=== PATIENT | female | born 1970 | race Caucasian/White ===

== ENCOUNTER 2023-10-02 09:15 | Day surgery (SDC) | payer BC ==
[2023-09-25 12:50] LABS: BILIRUBIN,URINE NEGATIVE (Neg); CLARITY,URINE SLIGHTLY CLOUDY (Clear); COLOR,URINE YELLOW (Yellow); GLUCOSE, URINE NEGATIVE (Neg); KETONES,URINE NEGATIVE (Neg); LEUKOCYTE ESTERASE ,URINE NEGATIVE (Neg); NITRITES, URINE NEGATIVE (Neg); OCCULT BLOOD,URINE NEGATIVE (Neg); PROTEIN,URINE NEGATIVE (Neg); UROBILINOGEN,URINE 0.2 E.U/dL (0.2-1.0)
[2023-09-25 12:51] LABS: UA COLLECTION TYPE CLN CATCH MIDSTREAM
[2023-09-25 12:55] LABS: BASOPHILS % (AUTO) 0.2 % (0-1); EOSINOPHILS # (AUTO) 0.1 X10'3 (0-0.9); EOSINOPHILS % (AUTO) 1.4 % (0-6); LYMPHOCYTES # (AUTO) 3.1 X10'3 (1.1-4.8); LYMPHOCYTES % (AUTO) 29.7 % (21-51); MEAN CORPUSCULAR HEMOGLOBIN 29.7 PG (27.0-31.0); MEAN CORPUSCULAR HGB CONC 33.3 g/dL (33.0-36.5); MEAN CORPUSCULAR VOLUME 89.1 FL (78-98); MEAN PLATELET VOLUME 7.5 FL (7.4-10.4); MONOCYTES # (AUTO) 0.5 X10'3 (0-0.9); MONOCYTES % (AUTO) 4.8 % (2-12); NEUTROPHILS # (AUTO) 6.7 X10'3 (1.8-7.7); NEUTROPHILS % (AUTO) 63.9 % (42-75); PRE OP HEMATOCRIT 44.2 % (35.0-45.0); PRE OP HEMOGLOBIN 14.7 g/dL (12.0-16.0); PRE OP PLATELET COUNT 398 X10'3 (140-440); PRE OP WHITE BLOOD COUNT 10.4 10'3 (4.8-10.8); RED BLOOD COUNT 4.96 X10'6 (4.20-5.60); RED CELL DISTRIBUTION WIDTH 14.7 % (11.5-14.5)
[2023-09-25 12:59] LABS: BACTERIA,URINE NONE SEEN /HPF (Neg); RBC,URINE NONE SEEN /HPF (0-2); SQUAMOUS EPITHELIAL CELL,UR MODERATE /LPF (FEW); WBC,URINE 0-4 /HPF (0-4)
[2023-09-25 13:02] LABS: STARCH,URINE FEW /HPF (NEGATIVE)
[2023-09-25 13:19] LABS: ALBUMIN 3.5 G/DL (3.4-5.0); ALBUMIN/GLOBULIN RATIO 0.9 (1.1-1.5); ALKALINE PHOSPHATASE 78 IU/L (46-116); BLOOD UREA NITROGEN 9 MG/DL (7-18); CHLORIDE 107 MMOL/L (99-107); CREATININE 0.69 MG/DL (0.40-0.90); PRE OP ALT 30 U/L (30-65); PRE OP ANION GAP 6 (8-16); PRE OP AST 14 U/L (10-37); PRE OP BILIRUB, TOTAL 0.5 MG/DL (0.0-1.0); PRE OP GLUCOSE 94 MG/DL (70-104); PRE OP POTASSIUM 3.6 MMOL/L (3.4-5.1); PRE OP SODIUM 142 MMOL/L (135-145); TOTAL CARBON DIOXIDE 29.3 MMOL/L (24-32); TOTAL PROTEIN 7.3 G/DL (6.4-8.2); eGFR 89 ML/MIN
[~2023-10-02] VITALS: Ht 170.2 cm; Wt 111.6 kg
[2023-10-02] VITALS (22 sets, daily range): BP systolic 106–186; BP diastolic 60–79; PULSE 74–86; RESP 10–24; TEMP 97.2–98.8; O2SAT 91–97
[2023-10-02] MEDS: clindamycin-Cleocin 900mg/D5W 50 ML IV ONE (05:30)
[2023-10-02] MEDS: famotidine 20mg tablet PO ONE (05:30)
[~2023-10-02 09:15] MED LIST: ACET-812 PO; ALBU18HF2 INH; FEXO1TAB5 PO; FLUT16SP2 BOTHNARES; GING550C4 PO; MULT-1085 PO
[2023-10-02] MEDS: gentamicin inj 400 MG in normal saline 100ml IV soln 100 ML IV ONE (09:55)
[2023-10-02] MEDS ORDERED: MIDAZolam 1 MG/ML 5ML VIAL ONE (12:02)
[2023-10-02] MEDS ORDERED: sevoflurane 250ml liquid IH ONE ×2 (12:39)
[2023-10-02] MEDS ORDERED: propofol inj 20 ML IV ONE (12:57)
[2023-10-02] MEDS ORDERED: fentaNYL /PF 50mcg/ml 5ml ampule ONE (12:57)
[2023-10-02] MEDS ORDERED: rocuronium 10mg/ml inj IV ONE ×3 (12:57→12:59)
[2023-10-02] MEDS ORDERED: LIDOcaine 2% (20mg/ml) 5ml vial ONE (12:57)
[2023-10-02] MEDS ORDERED: ondansetron/PF 4mg/2ml inj ONE (12:58)
[2023-10-02] MEDS ORDERED: acetaminophen 1,000mg/100ml IV 100 ML IV ONE (13:01)
[2023-10-02] MEDS ORDERED: morphine 4 MG/ML inj SYRINge IV PRN (13:25)
[2023-10-02] MEDS ORDERED: labetalol 20mg/4ml (5mg/ml) syringe IV PRN (13:25)
[2023-10-02] MEDS ORDERED: hydrALAZINE 20mg/ml inj. IV PRN (13:25)
[2023-10-02] MEDS ORDERED: fentaNYL/PF 50MCG/1 ML 2ML syringe IV PRN ×2 (13:25)
[2023-10-02] MEDS ORDERED: ondansetron/PF 4mg/2ml inj IV PRN ×2 (13:25→16:40)
[2023-10-02] MEDS: BUPIVAcaine 2.5mg/ml inj 50ml vial (contains preservative) ONE (13:39)
[2023-10-02] MEDS: clindamycin phosphate 40gm vag cream ONE (13:39)
[2023-10-02] MEDS: vasoPRESSIN 20 units/ml inj. ONE (13:40)
[2023-10-02] MEDS ORDERED: normal saline 500ml IV soln 500 ML IV PRN (16:40)
[2023-10-02] MEDS ORDERED: diphenhydrAMINE 50 mg/ml inj IV PRN (16:40)
[2023-10-02] MEDS ORDERED: metoclopramide 5 mg/ml inj IV PRN (16:40)
[2023-10-02] MEDS ORDERED: magnesium hydroxide 30ml (MOM) UD suspension PO PRN (16:40)
[2023-10-02] MEDS ORDERED: HYDROcodone/acetaminophen 10/325mg tab PO PRN (16:40)
[2023-10-02] MEDS: ringers solution, lacted 1,000 ML IV SCH ×2 (17:19→19:22)
[2023-10-02] MEDS: morphine 2 MG/ML inj. syringe IV PRN (17:36)
[2023-10-02] MEDS: HYDROcodone/acetaminophen 10/325mg tab PO PRN (19:24)
[2023-10-02] MEDS: docusate sod 100mg capsule PO SCH (19:24)
[2023-10-02] MEDS: LORazepam 2 mg/ml vial IV PRN (20:47)
[2023-10-02] MEDS: temazepam 15mg capsule PO PRN (23:12)
[2023-10-03 02:00] VITALS: BP 121/68; PULSE 87; RESP 20; TEMP 99.1
[2023-10-03] MEDS: ringers solution, lacted 1,000 ML IV SCH (03:32)
[2023-10-03 06:13] LABS: ALBUMIN 2.9 G/DL (3.4-5.0); ANION GAP 8 (8-16); BASOPHILS % (AUTO) 0.2 % (0-1); BLOOD UREA NITROGEN 6 MG/DL (7-18); BUN/CREATININE RATIO 9.2 (10.0-20.0); CALCIUM 8.8 MG/DL (8.5-10.1); CHLORIDE 107 MMOL/L (99-107); CREATININE 0.65 MG/DL (0.40-0.90); EOSINOPHILS % (AUTO) 0 % (0-6); GLUCOSE 121 MG/DL (70-104); HEMOGLOBIN 13.2 g/dl (12.0-16.0); LYMPHOCYTES % (AUTO) 6.6 % (21-51); MEAN CORPUSCULAR HEMOGLOBIN 29.6 PG (27.0-31.0); MEAN CORPUSCULAR HGB CONC 32.9 g/dL (33.0-36.5); MEAN CORPUSCULAR VOLUME 89.8 FL (78-98); MONOCYTES # (AUTO) 0.6 X10'3 (0-0.9); NEUTROPHILS # (AUTO) 13.5 X10'3 (1.8-7.7); NEUTROPHILS % (AUTO) 89.2 % (42-75); PLATELET COUNT 367 X10'3 (140-440); POTASSIUM 4.1 MMOL/L (3.5-5.1); RED BLOOD COUNT 4.46 X10'6 (4.20-5.60); RED CELL DISTRIBUTION WIDTH 14.6 % (11.5-14.5); SODIUM 142 MMOL/L (135-145); TOTAL CARBON DIOXIDE 26.6 MMOL/L (24-32); WHITE BLOOD COUNT 15.2 X10'3 (4.5-11.0); eCRCL 97 ML/MIN; eGFR > 90 ML/MIN
[2023-10-03 06:41] VITALS: BP 104/62; PULSE 94; RESP 18; TEMP 99; O2SAT 93
[2023-10-03 07:45] VITALS: RESP 18; O2SAT 93
[2023-10-03] MEDS: enoxaparin 40mg/0.4ml syringe SQ SCH (07:47)
[2023-10-03 11:31] VITALS: BP 93/59; PULSE 84; RESP 16; TEMP 98.2; O2SAT 94
[2023-10-03 13:31] VITALS: RESP 18
== END 2023-10-03 13:50 | disposition home or self-care (01) ==
LOC: PRE-OP 09:15 → SUR 3N 16:41 → PRE-OP 10-03 13:50
PROVIDERS: ATTEND Obstetrics & Gynecology Obstetrics
DX: N81.89 Other female genital prolapse (principal); E66.01 Morbid (severe) obesity due to excess calories; E78.5 Hyperlipidemia, unspecified; G43.909 Migraine, unspecified, not intractable, without status migrainosus; Z79.899 Other long term (current) drug therapy; Z90.710 Acquired absence of both cervix and uterus; Z68.38 Body mass index [BMI] 38.0-38.9, adult; Z88.0 Allergy status to penicillin; Z88.1 Allergy status to other antibiotic agents; Z88.6 Allergy status to analgesic agent; Z88.8 Allergy status to other drugs, medicaments and biological substances
CPT/HCPCS: 36415; 57260; 57283; 57530; 58661; 71046; 80048; 80053; 81001; 82948; 85025; 86885; 86900; 86901; 87081; 93005; J0131; J1580; J1650; J2060; J2250; J2270; J2405; J2704; J3010; J3490; J7030; J7040; J7120; Z7506; Z7508; Z7512; A4314; A4615; A4618; A7000; G0378

== ENCOUNTER 2023-10-23 15:03 | Inpatient (IN) | payer BC ==
[~2023-10-23] VITALS: Ht 170.2 cm; Wt 106.4 kg
[2023-10-23 15:42] LABS: BASOPHILS # (AUTO) 0.1 X10'3 (0-0.2); BASOPHILS % (AUTO) 0.6 % (0-1); EOSINOPHILS # (AUTO) 0.1 X10'3 (0-0.9); EOSINOPHILS % (AUTO) 0.4 % (0-6); HEMATOCRIT 45.2 % (35.0-45.0); HEMOGLOBIN 14.7 g/dl (12.0-16.0); LYMPHOCYTES # (AUTO) 2.8 X10'3 (1.1-4.8); LYMPHOCYTES % (AUTO) 17.5 % (21-51); MEAN CORPUSCULAR HEMOGLOBIN 29.3 PG (27.0-31.0); MEAN CORPUSCULAR HGB CONC 32.6 g/dL (33.0-36.5); MEAN CORPUSCULAR VOLUME 89.9 FL (78-98); MEAN PLATELET VOLUME 7.2 FL (7.4-10.4); MONOCYTES # (AUTO) 0.8 X10'3 (0-0.9); MONOCYTES % (AUTO) 5.2 % (2-12); NEUTROPHILS # (AUTO) 12.2 X10'3 (1.8-7.7); NEUTROPHILS % (AUTO) 76.3 % (42-75); PLATELET COUNT 457 X10'3 (140-440); RED BLOOD COUNT 5.02 X10'6 (4.20-5.60); RED CELL DISTRIBUTION WIDTH 14.4 % (11.5-14.5)
[2023-10-23 15:56] LABS: ALANINE AMINOTRANSFERASE 20 U/L (12-78); ALBUMIN 3.5 G/DL (3.4-5.0); ALBUMIN/GLOBULIN RATIO 0.9 (1.1-1.5); ALKALINE PHOSPHATASE 93 IU/L (46-116); ANION GAP 3 (8-16); ASPARTATE AMINO TRANSFERASE 10 U/L (10-37); BILIRUBIN,TOTAL 0.6 MG/DL (0.1-1.0); BLOOD UREA NITROGEN 8 MG/DL (7-18); BUN/CREATININE RATIO 9.6 (10.0-20.0); CALCIUM 9.6 MG/DL (8.5-10.1); CHLORIDE 104 MMOL/L (99-107); CREATININE 0.83 MG/DL (0.40-0.90); GLUCOSE 110 MG/DL (70-104); LIPASE 30 U/L (16-77); POTASSIUM 4.5 MMOL/L (3.5-5.1); SODIUM 139 MMOL/L (135-145); TOTAL CARBON DIOXIDE 32.5 MMOL/L (24-32); TOTAL PROTEIN 7.5 G/DL (6.4-8.2); eCRCL 76 ML/MIN; eGFR 72 ML/MIN
[2023-10-23] MEDS: ondansetron 4mg rapidly disintigrating tab PO ONE (16:44)
[2023-10-23] MEDS: ibuprofen tablet 400 MG TABLET PO ONE (16:44)
[2023-10-23] MEDS: CefTRIAXone 2gm/D5W 50ml BAG 50 ML IV ONE (16:45)
[2023-10-23 17:15] LABS: URINE HCG NEGATIVE (NEG)
[2023-10-23 17:30] LABS: BILIRUBIN,URINE NEGATIVE (Neg); CLARITY,URINE SLIGHTLY CLOUDY (Clear); COLOR,URINE YELLOW (Yellow); GLUCOSE, URINE NEGATIVE (Neg); KETONES,URINE NEGATIVE (Neg); LEUKOCYTE ESTERASE ,URINE TRACE (Neg); NITRITES, URINE NEGATIVE (Neg); OCCULT BLOOD,URINE TRACE-INTACT (Neg); PROTEIN,URINE TRACE mg/dl (Neg); UROBILINOGEN,URINE 0.2 E.U/dL (0.2-1.0)
[2023-10-23 17:38] LABS: UA COLLECTION TYPE NON-SPECIFIED
[2023-10-23 17:39] LABS: HYALINE CASTS 0-3 /LPF (NEGATIVE); MUCUS STRANDS MODERATE /LPF (Neg); SQUAMOUS EPITHELIAL CELL,UR MODERATE /LPF (FEW)
[2023-10-23 17:40] LABS: BACTERIA,URINE 2+ /HPF (Neg)
[2023-10-23] MEDS ORDERED: magnesium hydroxide 30ml (MOM) UD suspension PO PRN (18:30)
[2023-10-23] MEDS ORDERED: potassium Cl 40MEQ/1/2NS 520ml 520 ML IV PRN (18:30)
[2023-10-23] MEDS ORDERED: potassium Cl 20 mEq SR tablet PO PRN ×2 (18:30)
[2023-10-23] MEDS ORDERED: magnesium Cl slow-release 64mg tablet PO PRN (18:30)
[2023-10-23] MEDS ORDERED: magnesium sulf-water 4G/100mL 100 ML IV PRN (18:30)
[2023-10-23] MEDS ORDERED: magnesium sulf-water 2g/50mL 50 ML IV PRN (18:30)
[2023-10-23] MEDS ORDERED: ondansetron/PF 4mg/2ml inj IV PRN (18:30)
[2023-10-23] MEDS ORDERED: IBUP-1986 PO (18:53)
[2023-10-23] MEDS: docusate sod 100mg capsule PO SCH (20:00)
[2023-10-23] MEDS: K and/or MAG REPLACEMENT MC SCH (20:00)
[2023-10-23] MEDS: ciprofloxacin lact 400MG/200ML 200 ML IV SCH (20:45)
[2023-10-23] MEDS: ipratropium/albuterol 3ml nebule NEB PRN (21:02)
[2023-10-23 21:03] VITALS: PULSE 80; RESP 16; O2SAT 96
[2023-10-23 21:11] VITALS: PULSE 89; RESP 16
[2023-10-23 22:00] VITALS: BP 127/69; PULSE 87; RESP 18; RESP 20; TEMP 97.1; O2SAT 96; O2SAT 98
[2023-10-24] VITALS (7 sets, daily range): BP systolic 105–119; BP diastolic 55–65; PULSE 70–85; RESP 14–18; TEMP 97.2–97.8; O2SAT 93–98
[2023-10-24] MEDS: metroNIDAZOLE-Flagyl 500mg/NS 100 ML IV SCH (00:09)
[2023-10-24] MEDS: normal saline 1000ml 1,000 ML IV SCH (06:44)
[2023-10-24 07:31] LABS: BASOPHILS # (AUTO) 0.1 X10'3 (0-0.2); BASOPHILS % (AUTO) 0.9 % (0-1); EOSINOPHILS # (AUTO) 0.3 X10'3 (0-0.9); EOSINOPHILS % (AUTO) 3.1 % (0-6); HEMATOCRIT 40.2 % (35.0-45.0); HEMOGLOBIN 13.4 g/dl (12.0-16.0); LYMPHOCYTES # (AUTO) 2.4 X10'3 (1.1-4.8); LYMPHOCYTES % (AUTO) 23.1 % (21-51); MEAN CORPUSCULAR HEMOGLOBIN 29.8 PG (27.0-31.0); MEAN CORPUSCULAR HGB CONC 33.4 g/dL (33.0-36.5); MEAN CORPUSCULAR VOLUME 89.4 FL (78-98); MEAN PLATELET VOLUME 7.4 FL (7.4-10.4); MONOCYTES # (AUTO) 0.6 X10'3 (0-0.9); NEUTROPHILS # (AUTO) 6.9 X10'3 (1.8-7.7); NEUTROPHILS % (AUTO) 66.9 % (42-75); PLATELET COUNT 397 X10'3 (140-440); RED CELL DISTRIBUTION WIDTH 14.2 % (11.5-14.5); WHITE BLOOD COUNT 10.4 X10'3 (4.5-11.0)
[2023-10-24] MEDS: acetaminophen 325mg tablet PO PRN (07:51)
[2023-10-24 07:54] LABS: ALANINE AMINOTRANSFERASE 15 U/L (12-78); ALBUMIN 2.9 G/DL (3.4-5.0); ALBUMIN/GLOBULIN RATIO 0.8 (1.1-1.5); ALKALINE PHOSPHATASE 74 IU/L (46-116); ANION GAP 4 (8-16); ASPARTATE AMINO TRANSFERASE 9 U/L (10-37); BILIRUBIN,TOTAL 0.5 MG/DL (0.1-1.0); BLOOD UREA NITROGEN 7 MG/DL (7-18); BUN/CREATININE RATIO 9.9 (10.0-20.0); CALCIUM 8.5 MG/DL (8.5-10.1); CHLORIDE 106 MMOL/L (99-107); CREATININE 0.71 MG/DL (0.40-0.90); GLUCOSE 118 MG/DL (70-104); POTASSIUM 3.8 MMOL/L (3.5-5.1); SODIUM 138 MMOL/L (135-145); TOTAL CARBON DIOXIDE 28.2 MMOL/L (24-32); TOTAL PROTEIN 6.5 G/DL (6.4-8.2); eCRCL 89 ML/MIN; eGFR 86 ML/MIN
[2023-10-24] MEDS: fluticasone nasal spray 16GM bottle NS SCH (07:58)
[2023-10-24] MEDS: loratadine 10mg tablet PO SCH (09:29)
[2023-10-24] MEDS: diatr meglu/diatrizoate 30ml oral sol.-(3 dose) bottle PO SCH (11:40)
[2023-10-24] MEDS ORDERED: iohexol 300mg/ml 100ml inj. ONE (16:50)
[2023-10-24] MEDS ORDERED: diatr meglu/diatrizoate 30ml oral sol.-(3 dose) bottle PO SCH (21:00)
[2023-10-25] VITALS (25 sets, daily range): BP systolic 97–137; BP diastolic 58–82; PULSE 58–85; RESP 12–24; TEMP 95.4–98; O2SAT 8–100
[2023-10-25 06:35] LABS: BASOPHILS # (AUTO) 0.1 X10'3 (0-0.2); EOSINOPHILS # (AUTO) 0.4 X10'3 (0-0.9); EOSINOPHILS % (AUTO) 3.9 % (0-6); HEMATOCRIT 42.3 % (35.0-45.0); HEMOGLOBIN 14.1 g/dl (12.0-16.0); LYMPHOCYTES # (AUTO) 2.4 X10'3 (1.1-4.8); MEAN CORPUSCULAR HEMOGLOBIN 29.8 PG (27.0-31.0); MEAN CORPUSCULAR HGB CONC 33.4 g/dL (33.0-36.5); MEAN PLATELET VOLUME 7.9 FL (7.4-10.4); MONOCYTES # (AUTO) 0.6 X10'3 (0-0.9); MONOCYTES % (AUTO) 6.2 % (2-12); NEUTROPHILS # (AUTO) 6.2 X10'3 (1.8-7.7); NEUTROPHILS % (AUTO) 63.9 % (42-75); PLATELET COUNT 419 X10'3 (140-440); RED BLOOD COUNT 4.75 X10'6 (4.20-5.60); WHITE BLOOD COUNT 9.7 X10'3 (4.5-11.0)
[2023-10-25 06:47] LABS: ALANINE AMINOTRANSFERASE 16 U/L (12-78); ALBUMIN 3.1 G/DL (3.4-5.0); ALBUMIN/GLOBULIN RATIO 0.8 (1.1-1.5); ALKALINE PHOSPHATASE 84 IU/L (46-116); ANION GAP 9 (8-16); ASPARTATE AMINO TRANSFERASE 12 U/L (10-37); BILIRUBIN,TOTAL 0.6 MG/DL (0.1-1.0); BLOOD UREA NITROGEN 9 MG/DL (7-18); BUN/CREATININE RATIO 12.2 (10.0-20.0); CALCIUM 8.6 MG/DL (8.5-10.1); CHLORIDE 106 MMOL/L (99-107); CREATININE 0.74 MG/DL (0.40-0.90); GLUCOSE 118 MG/DL (70-104); POTASSIUM 3.8 MMOL/L (3.5-5.1); SODIUM 139 MMOL/L (135-145); TOTAL CARBON DIOXIDE 24.2 MMOL/L (24-32); TOTAL PROTEIN 6.9 G/DL (6.4-8.2); eCRCL 86 ML/MIN; eGFR 82 ML/MIN
[2023-10-25] MEDS ORDERED: normal saline 500ml IV soln 500 ML IV ONE (09:55)
[2023-10-25] MEDS: BUPIVAcaine 2.5mg/ml inj 50ml vial (contains preservative) ONE (13:39)
[2023-10-25] MEDS ORDERED: fentaNYL/PF 50MCG/1 ML 2ML syringe ONE (13:55)
[2023-10-25] MEDS ORDERED: propofol inj 20 ML IV ONE (13:55)
[2023-10-25] MEDS ORDERED: rocuronium 10mg/ml inj IV ONE (13:55)
[2023-10-25] MEDS ORDERED: midazolam 1 mg/ML 2ml injection ONE (13:55)
[2023-10-25] MEDS ORDERED: sevoflurane 250ml liquid IH ONE (14:02)
[2023-10-25] MEDS ORDERED: proCHLORperazine 10 MG/2 ml inj IV PRN (14:05)
[2023-10-25] MEDS ORDERED: morphine 2 MG/ML inj. syringe IV PRN (14:05)
[2023-10-25] MEDS ORDERED: meperidine/PF 25mg/ml syringe IV PRN ×2 (14:05)
[2023-10-25] MEDS ORDERED: dexamethasone sod phosphate 4mg/ml inj. ONE (14:25)
[2023-10-25] MEDS ORDERED: ceFOXitin 1000 MG inj ONE ×2 (14:33)
[2023-10-25] MEDS: BUPIVAcaine 2.5mg/ml inj 50ml vial (contains preservative) SQ ONE (14:58)
[2023-10-25] MEDS ORDERED: naloxone 0.4 mg/ml inj IV PRN (15:35)
[2023-10-25] MEDS ORDERED: glycopyrrolate 0.2mg/ml inj ONE (15:36)
[2023-10-25] MEDS ORDERED: neostigmine methylsulfate 1 MG/ML 10ml vial ONE (15:36)
[2023-10-25] MEDS: ringers solution, lacted 1,000 ML IV SCH (15:46)
[2023-10-25] MEDS: ondansetron/PF 4mg/2ml inj IV PRN (15:46)
[2023-10-25] MEDS: meperidine/PF 25mg/ml syringe IV PRN (15:47)
[2023-10-25] MEDS: ketorolac trometh 30MG/ML vial 30 MG/ML VIAL IV PRN (16:00)
[2023-10-25] MEDS: acetaminophen 1,000mg/100ml IV 100 ML IV ONE (16:02)
[2023-10-25] MEDS: morphine 4 MG/ML inj SYRINge IV PRN (16:09)
[2023-10-25] MEDS ORDERED: HYDROmorphone/PF 0.2 MG/ML SYRINGE IV PRN (18:10)
[2023-10-25] MEDS: HYDROmorphone inj. 0.5 MG/0.5 ML DISP.SYRIN IV PRN (19:12)
[2023-10-25] MEDS: HYDROcodone/acetaminophen 5mg/325mg tablet PO PRN (20:37)
[2023-10-26] VITALS (11 sets, daily range): BP systolic 101–113; BP diastolic 44–72; PULSE 68–90; RESP 16–24; TEMP 97–98.4; O2SAT 88–96
[2023-10-26] MEDS: morphine 2 MG/ML inj. syringe IV PRN (00:42)
[2023-10-26 06:55] LABS: BASOPHILS % (AUTO) 0.1 % (0-1); EOSINOPHILS % (AUTO) 0 % (0-6); HEMOGLOBIN 12.8 g/dl (12.0-16.0); LYMPHOCYTES # (AUTO) 0.9 X10'3 (1.1-4.8); LYMPHOCYTES % (AUTO) 5.4 % (21-51); MEAN CORPUSCULAR HEMOGLOBIN 29.2 PG (27.0-31.0); MEAN CORPUSCULAR HGB CONC 32.8 g/dL (33.0-36.5); MEAN CORPUSCULAR VOLUME 89.2 FL (78-98); MEAN PLATELET VOLUME 7.4 FL (7.4-10.4); MONOCYTES # (AUTO) 0.5 X10'3 (0-0.9); MONOCYTES % (AUTO) 2.9 % (2-12); NEUTROPHILS % (AUTO) 91.6 % (42-75); PLATELET COUNT 407 X10'3 (140-440); RED BLOOD COUNT 4.37 X10'6 (4.20-5.60); WHITE BLOOD COUNT 16.4 X10'3 (4.5-11.0)
[2023-10-26 07:22] LABS: ALANINE AMINOTRANSFERASE 90 U/L (12-78); ALBUMIN 2.7 G/DL (3.4-5.0); ALBUMIN/GLOBULIN RATIO 0.8 (1.1-1.5); ALKALINE PHOSPHATASE 77 IU/L (46-116); ANION GAP 6 (8-16); ASPARTATE AMINO TRANSFERASE 66 U/L (10-37); BILIRUBIN,TOTAL 0.3 MG/DL (0.1-1.0); BLOOD UREA NITROGEN 6 MG/DL (7-18); BUN/CREATININE RATIO 9.4 (10.0-20.0); CALCIUM 8.2 MG/DL (8.5-10.1); CHLORIDE 107 MMOL/L (99-107); CREATININE 0.64 MG/DL (0.40-0.90); GLUCOSE 140 MG/DL (70-104); SODIUM 137 MMOL/L (135-145); TOTAL CARBON DIOXIDE 23.9 MMOL/L (24-32); TOTAL PROTEIN 6.2 G/DL (6.4-8.2); eCRCL 99 ML/MIN; eGFR > 90 ML/MIN
[2023-10-26] MEDS: mag hydrox/Alum hydrox/simeth 30ml oral suspension PO PRN (16:04)
[2023-10-27] VITALS (7 sets, daily range): BP systolic 108–125; BP diastolic 66–73; PULSE 65–88; RESP 16–20; TEMP 97.4–98.2; O2SAT 92–97
[2023-10-27 07:11] LABS: ALANINE AMINOTRANSFERASE 64 U/L (12-78); ALBUMIN 2.9 G/DL (3.4-5.0); ALBUMIN/GLOBULIN RATIO 0.9 (1.1-1.5); ALKALINE PHOSPHATASE 71 IU/L (46-116); ANION GAP 9 (8-16); ASPARTATE AMINO TRANSFERASE 32 U/L (10-37); BILIRUBIN,TOTAL 0.4 MG/DL (0.1-1.0); BLOOD UREA NITROGEN 4 MG/DL (7-18); BUN/CREATININE RATIO 6.3 (10.0-20.0); CALCIUM 8.4 MG/DL (8.5-10.1); CHLORIDE 108 MMOL/L (99-107); CREATININE 0.64 MG/DL (0.40-0.90); GLUCOSE 108 MG/DL (70-104); POTASSIUM 3.7 MMOL/L (3.5-5.1); SODIUM 141 MMOL/L (135-145); TOTAL CARBON DIOXIDE 24.1 MMOL/L (24-32); TOTAL PROTEIN 6.3 G/DL (6.4-8.2); eCRCL 99 ML/MIN; eGFR > 90 ML/MIN
[2023-10-27] MEDS: pantoprazole 40mg Tablet.DR PO SCH (08:30)
[2023-10-27 11:27] LABS: BASOPHILS # (AUTO) 0.1 X10'3 (0-1); BASOPHILS % 1 % (0-2); EOSINOPHILS # (AUTO) 0.8 X10'3 (0-0.9); EOSINOPHILS % (AUTO) 6 % (0-6); HEMATOCRIT 36.2 % (37.7-47.9); HEMOGLOBIN 12.2 G/DL (11.5-16.0); LYMPHOCYTES # (AUTO) 3.5 X10'3 (1.1-4.8); LYMPHOCYTES % 26 % (24-44); MEAN CORPUSCULAR HEMOGLOBIN 29.9 PG (27-31.2); MEAN CORPUSCULAR HGB CONC 33.7 % (32-36); MEAN CORPUSCULAR VOLUME 88.8 FL (81-97); MONOCYTES # (AUTO) 0.5 X10'3 (0-0.9); MONOCYTES % 4 % (0-12); NEUTROPHILS # (AUTO) 8.5 X10'3 (1.8-7.7); PLATELET COUNT 396 X10'3 (130-400); RED BLOOD COUNT 4.08 X10'6 (3.60-4.90); RED CELL DISTRIBUTION WIDTH 14.2 % (11-16); SEGMENTED NEUTROPHILS % 63 % (36-66); WHITE BLOOD COUNT 13.5 X10'3 (4.5-11.0)
[2023-10-27] MEDS: enoxaparin 40mg/0.4ml syringe SUBCUT SCH (21:00)
[2023-10-27] MEDS: ciprofloxacin 250mg tablet PO SCH (23:06)
[2023-10-28] MEDS: metroNIDAZOLE 500mg tablet PO SCH (00:27)
[2023-10-28 04:29] LABS: BASOPHILS # (AUTO) 0.1 X10'3 (0-0.2); BASOPHILS % (AUTO) 0.9 % (0-1); EOSINOPHILS # (AUTO) 1.2 X10'3 (0-0.9); EOSINOPHILS % (AUTO) 9.6 % (0-6); HEMATOCRIT 36.1 % (35.0-45.0); HEMOGLOBIN 11.9 g/dl (12.0-16.0); LYMPHOCYTES # (AUTO) 3.6 X10'3 (1.1-4.8); LYMPHOCYTES % (AUTO) 29.5 % (21-51); MEAN CORPUSCULAR HEMOGLOBIN 29.4 PG (27.0-31.0); MEAN CORPUSCULAR VOLUME 89.2 FL (78-98); MEAN PLATELET VOLUME 6.9 FL (7.4-10.4); MONOCYTES # (AUTO) 0.9 X10'3 (0-0.9); MONOCYTES % (AUTO) 7.3 % (2-12); NEUTROPHILS # (AUTO) 6.4 X10'3 (1.8-7.7); NEUTROPHILS % (AUTO) 52.7 % (42-75); PLATELET COUNT 381 X10'3 (140-440); RED BLOOD COUNT 4.05 X10'6 (4.20-5.60); RED CELL DISTRIBUTION WIDTH 14.4 % (11.5-14.5); WHITE BLOOD COUNT 12.2 X10'3 (4.5-11.0)
[2023-10-28 04:44] LABS: ALANINE AMINOTRANSFERASE 47 U/L (12-78); ALBUMIN 2.5 G/DL (3.4-5.0); ALBUMIN/GLOBULIN RATIO 0.8 (1.1-1.5); ALKALINE PHOSPHATASE 63 IU/L (46-116); ANION GAP 6 (8-16); ASPARTATE AMINO TRANSFERASE 23 U/L (10-37); BILIRUBIN,TOTAL 0.4 MG/DL (0.1-1.0); BLOOD UREA NITROGEN 3 MG/DL (7-18); BUN/CREATININE RATIO 4.5 (10.0-20.0); CALCIUM 8.3 MG/DL (8.5-10.1); CHLORIDE 110 MMOL/L (99-107); CREATININE 0.66 MG/DL (0.40-0.90); GLUCOSE 105 MG/DL (70-104); POTASSIUM 3.5 MMOL/L (3.5-5.1); SODIUM 142 MMOL/L (135-145); TOTAL CARBON DIOXIDE 25.9 MMOL/L (24-32); TOTAL PROTEIN 5.5 G/DL (6.4-8.2); eCRCL 96 ML/MIN; eGFR > 90 ML/MIN
[2023-10-28 06:00] VITALS: BP 128/71; PULSE 81; RESP 15; TEMP 98.4; O2SAT 94
[2023-10-28 09:16] VITALS: PULSE 80; RESP 16; O2SAT 95
[2023-10-28 11:00] VITALS: BP 124/63; PULSE 85; RESP 16; TEMP 98.8; O2SAT 94
== END 2023-10-28 14:20 | disposition home or self-care (01) | DRG 418 ==
LOC: ER 15:04 → ED HOLD 18:34 → ORTHO 4S 21:48 → SUR 3N 10-26 16:51
PROVIDERS: ADMIT Family Medicine; ATTEND Family Medicine
PROC: BW211ZZ Computerized Tomography (CT Scan) of Abdomen and Pelvis using Low Osmolar Contrast (ICD-10-PCS; 2023-10-24)
PROC: 8E0W4CZ Robotic Assisted Procedure of Trunk Region, Percutaneous Endoscopic Approach (ICD-10-PCS; 2023-10-25)
PROC: 0FT44ZZ Resection of Gallbladder, Percutaneous Endoscopic Approach (ICD-10-PCS; principal; 2023-10-25 14:02)
DX: K80.62 Calculus of gallbladder and bile duct with acute cholecystitis without obstruction (principal); N39.0 Urinary tract infection, site not specified; K82.8 Other specified diseases of gallbladder; Z88.1 Allergy status to other antibiotic agents; Z88.0 Allergy status to penicillin; Z88.8 Allergy status to other drugs, medicaments and biological substances; Z79.899 Other long term (current) drug therapy; Z90.711 Acquired absence of uterus with remaining cervical stump; Z87.11 Personal history of peptic ulcer disease; Z72.0 Tobacco use
CPT/HCPCS: 99285; Z7506; Z7508; 36415; 71045; 74177; 76700; 80053; 81001; 81025; 82948; 83690; 84145; 85025; 87081; 87088; 93005; 94640; 94760; 97116; 97161; 97530; A4215; A4615; A4618; A6449; A7000; G0378; J0131; J0694; J0696; J0744; J1100; J1170; J1650; J1885; J2175; J2250; J2270; J2405; J2704; J2710; J3010; J3490; J7030; J7120; Q9963; Q9967